=== PATIENT | male | born 1970 | race Caucasian/White ===

== ENCOUNTER → 2018-01-31 | Outpatient (CLI) | payer OTHER ==
[2018-01-31 11:55] LABS: ALT 38 U/L (21-72); AST 30 U/L (17-59); Albumin 4.9 g/dL (3.5-5.0); Alkaline Phosphatase 59 U/L (38-126); Anion Gap 12 mmol/L; Blood Urea Nitrogen 16 mg/dL (9-20); Calcium 9.7 mg/dL (8.4-10.2); Carbon Dioxide 28 mmol/L (22-30); Chloride 100 mmol/L (98-107); Cholesterol 230 mg/dL (<200); Glucose 97 mg/dL (74-99); Potassium 4.4 mmol/L (3.5-5.1); Sodium 140 mmol/L (137-145); Total Bilirubin 0.8 mg/dL (0.2-1.3); Total Protein 7.3 g/dL (6.3-8.2); Triglycerides 54 mg/dL (<150)
[2018-01-31 12:05] LABS: LDL Cholesterol,Calculated 101 mg/dL (0-99)
[2018-01-31 12:23] LABS: HDL Cholesterol 118 mg/dL (40-60)
[2018-01-31 17:58] LABS: Hemoglobin A1C 4.6 % (4.0-6.0)
== END | disposition home or self-care (01) ==
LOC: LABWHC1 09:09
PROVIDERS: ATTEND Family Medicine
DX: Z00.01 Encounter for general adult medical examination with abnormal findings (principal); I10 Essential (primary) hypertension; G25.0 Essential tremor
CPT/HCPCS: 36415; 80053; 80061; 83036; 84443

== ENCOUNTER → 2019-01-18 | Outpatient (CLI) | payer OTHER ==
[2019-01-18 16:42] LABS: Albumin 4.9 g/dL (3.80-4.90); Albumin/Globulin Ratio 2.45 (1.60-3.17); Anion Gap 10.8 mmol/L (4.00-12.00); Calcium 9.7 mg/dL (8.7-10.3); Carbon Dioxide 24.2 mmol/L (21.6-31.8); LDL Cholesterol,Calculated 112.6 mg/dL (0.0-131.0); Potassium 4.4 mmol/L (3.5-5.5); Total Bilirubin 0.7 mg/dL (0.3-1.2); Total Protein 6.9 g/dL (6.2-8.2); VLDL Calculation 10.4 mg/dL (5.00-40.00)
[2019-01-18 17:36] LABS: Hemoglobin A1C 4.9 % (4.0-6.0)
== END | disposition home or self-care (01) ==
LOC: LABWHC1 07:50
PROVIDERS: ATTEND Nurse Practitioner
DX: Z00.00 Encounter for general adult medical examination without abnormal findings (principal); I10 Essential (primary) hypertension
CPT/HCPCS: 36415; 80053; 80061; 83036; 84443

== ENCOUNTER → 2019-11-01 | Outpatient (CLI) | payer OTHER ==
[2019-11-01 16:42] LABS: African American GFR (CKD) 103.4 (60.0-200.0); Albumin 4.8 g/dL (3.80-4.90); Albumin/Globulin Ratio 2.29 (1.60-3.17); Anion Gap 11.7 mmol/L (4.00-12.00); Calcium 9.6 mg/dL (8.7-10.3); Carbon Dioxide 26.3 mmol/L (21.6-31.8); Chol/HDL Ratio 2.25; Globulin 2.1 g/dL (1.6-3.3); Non-African American GFR(CKD) 89.2 (60.0-200.0); Potassium 4.4 mmol/L (3.5-5.5); Total Bilirubin 0.7 mg/dL (0.2-1.2); Total Protein 6.9 g/dL (6.2-8.2)
== END | disposition home or self-care (01) ==
LOC: LABWHC1 09:46
PROVIDERS: ATTEND Nurse Practitioner
DX: E78.00 Pure hypercholesterolemia, unspecified (principal); I10 Essential (primary) hypertension
CPT/HCPCS: 36415; 80053; 80061

== ENCOUNTER → 2020-09-04 | Outpatient (CLI) | payer OTHER ==
[2020-09-04 07:41] LABS: Basophils # (A) 0.1 k/uL (0-0.2); Basophils % (A) 1 %; Eosinophils # (A) 0.2 k/uL (0-0.7); Eosinophils % (A) 5 %; HCT 44.3 % (39.0-53.0); HGB 15.2 gm/dL (13.0-17.5); Lymphocytes # (A) 1.4 k/uL (1.0-4.8); Lymphocytes % (A) 30 %; MCH 32.5 pg (25.0-35.0); MCHC 34.4 g/dL (31.0-37.0); MCV 94.4 fL (80.0-100.0); Mean Platelet Volume 6.9; Monocytes # (A) 0.3 k/uL (0-1.0); Monocytes % (A) 7 %; Neutrophils # (A) 2.5 k/uL (1.3-7.7); Neutrophils % (A) 54 %; Platelet Count 212 k/uL (150-450); RBC 4.69 m/uL (4.30-5.90); RDW 12.4 % (11.5-15.5); WBC 4.6 k/uL (3.8-10.6)
[2020-09-04 11:14] LABS: ALT 31 U/L (10-49); AST 30 U/L (14-35); African American GFR (CKD) 91.5 (60.0-200.0); Albumin/Globulin Ratio 2.63 (1.60-3.17); Alkaline Phosphatase 64 U/L (41-126); BUN/Creat Ratio 16.36 Ratio (12.00-20.00); Calcium 9.7 mg/dL (8.7-10.3); Chloride 102 mmol/L (96-109); Chol/HDL Ratio 2.51; Cholesterol 231 mg/dL (0-200); Globulin 1.9 g/dL (1.6-3.3); Glucose 95 mg/dL (70-110); Potassium 4.3 mmol/L (3.5-5.5); Prostate Specific Antigen 0.2 ng/mL (0.0-2.5); Sodium 139 mmol/L (135-145); Total Bilirubin 0.8 mg/dL (0.3-1.2); Total Protein 6.9 g/dL (6.2-8.2); Triglycerides <50.0 mg/dL (0.0-149.0)
[2020-09-04 14:15] LABS: Hemoglobin A1C 4.8 % (4.0-6.0)
== END | disposition home or self-care (01) ==
LOC: LABWHC1 07:16
PROVIDERS: ATTEND Family Medicine
DX: I10 Essential (primary) hypertension (principal); G25.0 Essential tremor; N52.9 Male erectile dysfunction, unspecified
CPT/HCPCS: 36415; 80053; 80061; 83036; 84153; 84443; 85025

== ENCOUNTER → 2021-09-03 | Outpatient (CLI) | payer OTHER ==
[2021-09-03 15:59] LABS: African American GFR (CKD) 110.9 (60.0-200.0); Albumin 4.7 g/dL (3.8-4.9); Albumin/Globulin Ratio 2.14 (1.60-3.17); Anion Gap 13.9 mmol/L (10.00-18.00); BUN/Creat Ratio 12.11 Ratio (12.00-20.00); Blood Urea Nitrogen 11.3 mg/dL (9.0-27.0); Calcium 9.5 mg/dL (8.7-10.3); Carbon Dioxide 24.5 mmol/L (20.0-27.5); Globulin 2.2 g/dL (1.6-3.3); HDL Cholesterol 97.1 mg/dL (40.00-60.00); Non-African American GFR(CKD) 95.7 (60.0-200.0); Potassium 4.5 mmol/L (3.5-5.5); Total Bilirubin 0.4 mg/dL (0.30-1.20); Total Protein 6.9 g/dL (6.2-8.2); Triglycerides 38.9 mg/dL (0.00-149.00)
[2021-09-03 16:30] LABS: Chol/HDL Ratio 2.17 Ratio
== END | disposition home or self-care (01) ==
LOC: LABWHC1 08:29
PROVIDERS: ATTEND Family Medicine
DX: Z00.00 Encounter for general adult medical examination without abnormal findings (principal); I10 Essential (primary) hypertension
CPT/HCPCS: 36415; 80053; 80061; 83721

== ENCOUNTER → 2022-12-23 | Outpatient (CLI) | payer OTHER ==
[2022-12-23 15:24] LABS: Basophils # (A) 0.04 X 10*3/uL (0.00-0.10); Eosinophils % (A) 4.8 %; HCT 45.8 % (39.6-50.0); HGB 15.1 g/dL (13.0-17.0); Immature Grans, Automated 0.5 %; Lymphocytes # (A) 1.17 X 10*3/uL (0.90-5.00); Lymphocytes % (A) 27.8 %; MCH 31.3 pg (27.0-32.0); MCV 94.8 fL (80.0-97.0); Mean Platelet Volume 8.9 fL (9.5-12.2); Monocytes # (A) 0.48 X 10*3/uL (0.20-1.00); Monocytes % (A) 11.4 %; NRBC Per 100 WBC 0 /100 WBCS (0.0-0.0); Neutrophils % (A) 54.5 %; Platelet Count 201 X 10*3/uL (140-440); RBC 4.83 X 10*6/uL (4.40-5.60); RDW 12.4 % (11.5-14.5); WBC 4.21 X 10*3/uL (4.50-10.00)
[2022-12-23 15:59] LABS: ALT 23 U/L (10-49); AST 19 U/L (14-35); African American GFR (CKD) 101.7 (60.0-200.0); Albumin 4.7 g/dL (3.8-4.9); Albumin/Globulin Ratio 2.05 (1.60-3.17); Alkaline Phosphatase 62 U/L (41-126); BUN/Creat Ratio 13.02 Ratio (12.00-20.00); Blood Urea Nitrogen 12.9 mg/dL (9.0-27.0); Calcium 9.7 mg/dL (8.7-10.3); Carbon Dioxide 26.3 mmol/L (20.0-27.5); Chloride 104 mmol/L (96-109); Chol/HDL Ratio 2.42 Ratio; Globulin 2.3 g/dL (1.6-3.3); Glucose 97 mg/dL (70-110); LDL Cholesterol,Calculated 124.5 mg/dL (0.0-131.0); Non-African American GFR(CKD) 87.7 (60.0-200.0); Potassium 4.9 mmol/L (3.5-5.5); Sodium 141 mmol/L (135-145); Total Protein 6.9 g/dL (6.2-8.2); VLDL Calculation 8.68 mg/dL (5.00-40.00)
== END | disposition home or self-care (01) ==
LOC: LABWHC1 07:48
PROVIDERS: ATTEND Family Medicine
DX: Z00.01 Encounter for general adult medical examination with abnormal findings (principal); Z12.5 Encounter for screening for malignant neoplasm of prostate; G25.0 Essential tremor; I10 Essential (primary) hypertension; N52.9 Male erectile dysfunction, unspecified
CPT/HCPCS: 36415; 80053; 80061; 83036; 84153; 84443; 85025

== ENCOUNTER → 2023-12-28 | Outpatient (CLI) | payer OTHER ==
[2023-12-28 15:38] LABS: ALT 26 U/L (10-49); AST 25 U/L (14-35); Albumin 4.8 g/dL (3.8-4.9); Albumin/Globulin Ratio 2.18 Ratio (1.60-3.17); Alkaline Phosphatase 71 U/L (41-126); BUN/Creat Ratio 12.18 Ratio (12.00-20.00); Blood Urea Nitrogen 13.4 mg/dL (9.0-27.0); Calcium 9.6 mg/dL (8.7-10.3); Carbon Dioxide 24.9 mmol/L (21.6-31.8); Chloride 101 mmol/L (96-109); Chol/HDL Ratio 2.51 Ratio; Globulin 2.2 g/dL (1.6-3.3); Glucose 98 mg/dL (70-110); LDL Cholesterol,Calculated 118.9 mg/dL (0.0-131.0); Potassium 4.9 mmol/L (3.5-5.5); Prostate Specific Antigen 0.23 ng/mL (0.000-3.500); Sodium 137 mmol/L (135-145); Total Bilirubin 0.6 mg/dL (0.3-1.2); VLDL Calculation 8.84 mg/dL (5.00-40.00)
[2023-12-28 16:20] LABS: HCT 42.6 % (39.6-50.0); HGB 14.4 g/dL (13.0-17.0); MCH 32.1 pg (27.0-32.0); MCHC 33.8 g/dL (32.0-37.0); MCV 95.1 FL (80.0-97.0); Mean Platelet Volume 8.9 FL (9.5-12.2); NRBC Per 100 WBC 0 X 10*3/uL (0.00-0.01); Platelet Count 192 X 10*3/uL (140-440); RBC 4.48 X 10*6/uL (4.40-5.60); RDW 12.5 % (11.5-14.5); WBC 4.29 X 10*3/uL (4.50-10.00)
== END | disposition home or self-care (01) ==
LOC: LABWHC1 09:52
PROVIDERS: ATTEND Family Medicine
DX: Z00.01 Encounter for general adult medical examination with abnormal findings (principal); I10 Essential (primary) hypertension; E55.9 Vitamin D deficiency, unspecified
CPT/HCPCS: 36415; 80053; 80061; 82306; 83036; 84153; 84443; 85027

== ENCOUNTER → 2024-11-27 | Outpatient (CLI) | payer OTHER ==
[2024-11-27 15:23] LABS: Basophils # (A) 0.04 X 10*3/uL (0.00-0.10); Basophils % (A) 0.9 %; Eosinophils # (A) 0.26 X 10*3/uL (0.04-0.35); HCT 44.3 % (39.6-50.0); Lymphocytes # (A) 1.11 X 10*3/uL (0.90-5.00); Lymphocytes % (A) 25.5 %; MCH 32.4 pg (27.0-32.0); MCHC 33.9 g/dL (32.0-37.0); MCV 95.7 FL (80.0-97.0); Mean Platelet Volume 8.8 FL (9.5-12.2); Monocytes # (A) 0.41 X 10*3/uL (0.20-1.00); Monocytes % (A) 9.4 %; NRBC Per 100 WBC 0 X 10*3/uL (0.00-0.01); Neutrophils # (A) 2.52 X 10*3/uL (1.80-7.70); Neutrophils % (A) 57.7 %; Platelet Count 202 X 10*3/uL (140-440); RBC 4.63 X 10*6/uL (4.40-5.60); RDW 12.5 % (11.5-14.5); WBC 4.36 X 10*3/uL (4.50-10.00)
[2024-11-27 15:56] LABS: ALT 24 U/L (10-49); AST 21 U/L (14-35); Albumin 4.5 g/dL (3.8-4.9); Alkaline Phosphatase 68 U/L (41-126); Blood Urea Nitrogen 12.3 mg/dL (9.0-27.0); Calcium 9.6 mg/dL (8.7-10.3); Carbon Dioxide 24.8 mmol/L (21.6-31.8); Chloride 104 mmol/L (96-109); Chol/HDL Ratio 2.72 Ratio; Globulin 2.5 g/dL (1.6-3.3); Glucose 111 mg/dL (70-110); LDL Cholesterol,Calculated 124.8 mg/dL (0.0-131.0); Potassium 4.8 mmol/L (3.5-5.5); Prostate Specific Antigen 0.21 ng/mL (0.000-3.500); Sodium 140 mmol/L (135-145); Total Bilirubin 0.4 mg/dL (0.3-1.2); VLDL Calculation 9.26 mg/dL (5.00-40.00)
== END | disposition home or self-care (01) ==
LOC: LABWHC1 08:53
PROVIDERS: ATTEND Family Medicine
DX: Z00.00 Encounter for general adult medical examination without abnormal findings (principal); Z12.5 Encounter for screening for malignant neoplasm of prostate; I10 Essential (primary) hypertension; E55.9 Vitamin D deficiency, unspecified
CPT/HCPCS: 36415; 80053; 80061; 82306; 83036; 84153; 84443; 85025